=== PATIENT | female | born 1990 | race African-American/Black ===

== ENCOUNTER 2017-11-19 15:14 | Emergency (ER) | payer SELFPAY ==
--- NOTE | 2017-11-19 16:44 | RAD ---
2 VIEWS CHEST: Date: 11/19/17 COMPARISON: None. HISTORY: Shortness of breath, chest pain, and lightheadedness. FINDINGS: No pneumothorax, pleural fluid, focal consolidation, or alveolar edema. Heart and mediastinal contour s unremarkable. IMPRESSION: No acute findings. POS: [facility]
== END 2017-11-19 18:18 | disposition home or self-care (01) ==
LOC: ERS 15:14
DX: R07.2 Precordial pain (principal)
CPT/HCPCS: 36415; 71046; 85379; 93005